=== PATIENT | female | born 1995 | race Caucasian/White ===

== ENCOUNTER 2017-02-06 22:28 | Emergency (ER) | payer OTHER ==
[~2017-02-06] VITALS: Ht 167.6 cm; Wt 88.5 kg
[2017-02-06 22:36] VITALS: TEMP 36.6; Ht 167.6 cm; Wt 88.5 kg
[2017-02-06] MEDS ORDERED: ONDANSETRON INJ 2 MG/ML 2 ML VIAL IV STA (22:55)
[2017-02-06] MEDS ORDERED: GI COCKTAIL PO ONE (23:00)
[2017-02-06] MEDS ORDERED: ALUMINUM/MAGNESIUM SUSP 30 ML UDC ONE (23:20)
[2017-02-06] MEDS ORDERED: LIDOCAINE HCL 2% VISC SOLN 20 ML UDC ONE (23:20)
[2017-02-06 23:34] LABS: URINE APPEARANCE CLEAR (CLEAR); URINE BILIRUBIN NEG (NEG); URINE COLOR YELLOW; URINE EPITHELIAL CELL AUTO >30 /lpf (0-5); URINE NITRITE NEG (NEG); UROBILINOGEN NEG (NEG); ZZUR CULT IF INDIC CLEAN CATCH YES
[2017-02-06 23:37] LABS: MANUAL MICROSCOPIC REQUIRED? NO; REVIEW REQ? NO
[2017-02-07 00:13] LABS: BASO % 0.1 %; BASO ABS # 0.01 K/uL (0-0.2); COMPLETE YES; EOS % 1.8 %; HEMATOCRIT 32.3 % (37-47); IG% 0.2 %; LYMPH % 26.2 %; LYMPH ABS # 2.39 K/uL (1.2-3.4); MEAN CELL VOLUME 76.2 fL (80-100); MEAN CORPUSCULAR HGB CONC 32.8 g/dl (32-36); MEAN PLATELET VOLUME 9.9 fL (7.4-10.4); MONO % 4.7 %; PLATELET COUNT 188 K/uL (130-400); RED BLOOD COUNT 4.24 M/uL (4.2-5.4); WHITE BLOOD COUNT 9.13 K/uL (4.8-10.8)
[2017-02-07 00:32] LABS: BUN/CREATININE RATIO 18.8 (10-20); CALCIUM 9.2 mg/dl (8.5-10.1); CREATININE 0.68 mg/dl (0.60-1.20); POTASSIUM 3.8 mmol/L (3.5-5.1)
[2017-02-07 00:35] LABS: ALB/GLOB RATIO 0.9 (0.9-2)
[2017-02-07] MEDS ORDERED: ONDANSETRON HOME PACK 4MG OD TAB PO ONE (01:15)
[2017-02-07 01:25] VITALS: BP 106/58; PULSE 70; O2SAT 98
--- NOTE | 2017-02-07 06:09 | EMERGENCY ROOM VISIT NOTE ---
History First contact with patient: 22:48 Chief Complaint: ABDOMINAL PAIN Stated Complaint: CHEST PAIN Nursing Triage Summary: Pt states upper abd pain started 1 hour ago after she ate, denies N/V, skin w/d/i, states they think she is prgnant, period was a month and a half ago. History of Present Illness The patient is a 21 year old female who presents to the Emergency Room with complaints of upper abdominal pain that began about one hour ago. The patient is nauseated and did have an episode of emesis. The patient is accompanied by her who assists in the history as the patient speaks limited Spanish. The patient is okay with him translating. The patient considers herself usually healthy. She evidently had similar symptoms when she was with her first child. She has not had a menstrual period in 6 weeks. The patient does not have fever, chills, chest pain, shortness of breath, or lower abdominal pain. No vaginal drainage, discharge, or bleeding. No difficulty using the bathroom. Review of Systems More than 10 systems were reviewed and otherwise negative with the exception of history of present illness. Past Medical/Surgical History No chronic medical disease Social History Smoking Status: Never Smoker Housing Status: lives with family Current/Historical Medications No Active Prescriptions or Reported Meds Physical Exam Vital Signs Date Time Temp Pulse Resp B/P (MAP) Pulse Ox O2 Delivery O2 Flow Rate FiO2 02/07/17 01:25 70 18 106/58 98 02/06/17 22:36 36.6 20 130/83 78 Room Air Physical Exam VITALS: Vitals are noted on the nurse's note and reviewed by myself. Vital signs stable. GENERAL: Well-developed, well-nourished, female, who is in no acute distress and resting comfortably. Patient is cooperative with the examination. HEART: Regular rate and rhythm without murmurs gallops or rubs. LUNGS: Clear to auscultation bilaterally without wheezes, rales or rhonchi. No retractions or accessory muscle use. ABDOMEN: Positive normal bowel sounds x 4. Soft, nontender, without masses or organomegaly. No guarding or rebound tenderness. MUSCULOSKELETAL: No muscle atrophy, erythema, or edema noted. Full range of motion without joint tenderness in all extremities. Medical Decision & Procedures Laboratory Results 02/07/17 00:03 Red Blood Count 4.24, Mean Corpuscular Volume 76.2, Mean Corpuscular Hemoglobin 25.0, Mean Corpuscular Hemoglobin Concent 32.8, Mean Platelet Volume 9.9, Neutrophils (%) (Auto) 67.0, Lymphocytes (%) (Auto) 26.2, Monocytes (%) (Auto) 4.7, Eosinophils (%) (Auto) 1.8, Basophils (%) (Auto) 0.1, Neutrophils # (Auto) 6.12, Lymphocytes # (Auto) 2.39, Monocytes # (Auto) 0.43, Eosinophils # (Auto) 0.16, Basophils # (Auto) 0.01 02/07/17 00:03 Test 02/06/17 23:15 02/07/17 00:03 Urine Color YELLOW Urine Appearance CLEAR (CLEAR) Urine pH 7.0 (4.5-7.5) Urine Specific [place] 1.020 (1.000-1.030) Urine Protein NEG (NEG) Urine Glucose (UA) NEG (NEG) Urine Ketones NEG (NEG) Urine Occult Blood NEG (NEG) Urine Nitrite NEG (NEG) Urine Bilirubin NEG (NEG) Urine Urobilinogen NEG (NEG) Urine Leukocyte Esterase MODERATE (NEG) Urine WBC (Auto) 10-30 /hpf (0-5) Urine RBC (Auto) 0-4 /hpf (0-4) Urine Hyaline Casts (Auto) 1-5 /lpf (0-5) Urine Epithelial Cells (Auto) >30 /lpf (0-5) Urine Bacteria (Auto) 1+ (NEG) Urine Test NEG (NEG) White Blood Count 9.13 K/uL (4.8-10.8) Red Blood Count 4.24 M/uL (4.2-5.4) Hemoglobin 10.6 g/dL (12.0-16.0) Hematocrit 32.3 % (37-47) Mean Corpuscular Volume 76.2 fL (80-100) Mean Corpuscular Hemoglobin 25.0 pg (25-34) Mean Corpuscular Hemoglobin Concent 32.8 g/dl (32-36) Platelet Count 188 K/uL (130-400) Mean Platelet Volume 9.9 fL (7.4-10.4) Neutrophils (%) (Auto) 67.0 % Lymphocytes (%) (Auto) 26.2 % Monocytes (%) (Auto) 4.7 % Eosinophils (%) (Auto) 1.8 % Basophils (%) (Auto) 0.1 % Neutrophils # (Auto) 6.12 K/uL (1.4-6.5) Lymphocytes # (Auto) 2.39 K/uL (1.2-3.4) Monocytes # (Auto) 0.43 K/uL (0.11-0.59) Eosinophils # (Auto) 0.16 K/uL (0-0.5) Basophils # (Auto) 0.01 K/uL (0-0.2) RDW Standard Deviation 40.4 fL (36.4-46.3) RDW Coefficient of Variation 14.5 % (11.5-14.5) Immature Granulocyte % (Auto) 0.2 % Immature Granulocyte # (Auto) 0.02 K/uL (0.00-0.02) Anion Gap 8.0 mmol/L (3-11) Est Creatinine Clear Calc Drug Dose 147.8 ml/min Estimated GFR () 145.9 Estimated GFR (Non- 125.9 BUN/Creatinine Ratio 18.8 (10-20) Calcium Level 9.2 mg/dl (8.5-10.1) Total Bilirubin 0.3 mg/dl (0.2-1) Aspartate Amino Transf (AST/SGOT) 13 U/L (15-37) Alanine Aminotransferase (ALT/SGPT) 17 U/L (12-78) Alkaline Phosphatase 136 U/L (45-117) Total Protein 7.6 gm/dl (6.4-8.2) Albumin 3.6 gm/dl (3.4-5.0) Globulin 4.0 gm/dl (2.5-4.0) Albumin/Globulin Ratio 0.9 (0.9-2) Lipase 114 U/L (73-393) Medications Administered Medications (Trade) Dose Ordered Sig/Nat Route Start Time Stop Time Status Last Admin Dose Admin Ondansetron HCl (Zofran Inj) 4 mg NOW STAT IV 02/06/17 22:55 02/06/17 22:57 DC 02/06/17 23:32 4 MG Lidocaine HCl (Viscous Lidocaine 2% Soln) 20 ml STK-MED ONCE .ROUTE 02/06/17 23:20 02/06/17 23:21 DC 02/06/17 23:32 20 ML Al Hydroxide/Mg Hydroxide (Maalox Susp) 30 ml STK-MED ONCE .ROUTE 02/06/17 23:20 02/06/17 23:21 DC 02/06/17 23:32 30 ML ED Course Physical exam and history were performed. Nursing notes, EMR, and Medication List were personally reviewed. Patient appears to have epigastric abdominal discomfort with an episode of vomiting over the past hour. On examination the patient does not appear toxic. Her physical exam is not consistent with an acute surgical abdomen. The patient is concerned for , and urine was performed and was negative. IV access was established and labs were obtained. The patient was medicated as above. The patient's blood work is as above and was reviewed. She does not have a significantly elevated white blood cell count, gross anemia, bandemia, or significant Imbalance. Transaminases are nondiagnostic. Urine is without obvious infection. X-ray did not show free air or other significant findings. Overall the patient continued to remain in stable condition. Repeat abdominal exam did not reveal any worsening of her symptoms. I do suspect her symptoms may be a viral or foodborne etiology. She will be treated as below and given instructions to follow with her PCP. She was otherwise invited back to ER with any new, worsening, or concerning symptoms. The chart was completed utilizing Art Qualified Speech Voice Recognition Software. Grammatical errors, random word insertions, pronoun errors, and incomplete sentences are an occasional consequence of this system due to software limitations, ambient noise, and hardware issues. Any formal questions or concerns about the content, text, or information contained within the body of this dictation should be directly addressed to the provider for clarification. . Medical Decision Differential diagnosis: Etiologies such as gastroenteritis, food borne illness, infections, appendicitis , diverticulitis, inflammatory bowel disease, obstruction, GI bleed, biliary pathology, as well as others were entertained. Impression Primary Impression: Epigastric abdominal pain Additional Impression: Nausea and vomiting Departure Information Dispostion Home / Self-Care Condition GOOD Prescriptions No Active Prescriptions or Reported Meds Forms HOME CARE DOCUMENTATION FORM, School Instructions, Additional Instructions: Patient seen and evaluated today in the emergency department for medica care. Return to class on 02/09/2017. Please excuse. IMPORTANT VISIT INFORMATION Patient Instructions My [facility] Additional Instructions You were seen and evaluated today on an emergency basis only. This is not a substitute for, or an effort to provide, complete comprehensive medical care. It is not possible to recognize and treat all injuries or illnesses in a single emergency department visit. For this reason it is recommended that you followup with [facility] or your primary care physician with any ongoing or persistent symptoms. Zofran 1 tablet every 6 hrs as needed for nausea. You are welcome to return to the emergency department anytime with new, worsening, or concerning symptoms. School Instructions Additional School Instructions: Patient seen and evaluated today in the emergency department for medical care. Return to class on 02/09/2017. Please excuse. Problem Qualifiers
--- NOTE | 2017-02-07 07:38 | DIAGNOSTIC IMAGING REPORT ---
CHEST AND ABDOMEN 2 VIEWS HISTORY: Epigastric abd pain. Make sure preg neg before xrays COMPARISON: None. FINDINGS: The lungs are clear. The cardiomediastinal silhouette is within normal limits. There is no pneumoperitoneum or pneumatosis. The bowel gas pattern is unremarkable. No evidence for bowel obstruction. No pathologic calcifications. IMPRESSION: No acute cardiopulmonary process. No evidence for bowel obstruction. Electronically signed by: Socrates Humphrey M.D. 02/07/2017 7:36 AM Dictated Date/Time: 02/07/2017 7:35 AM
== END 2017-02-07 01:20 | disposition home or self-care (01) ==
LOC: C.EDB 22:30 → C.EDC 02-07 01:20
DX: R10.13 Epigastric pain (principal); R11.2 Nausea with vomiting, unspecified

== ENCOUNTER → 2017-04-20 | Outpatient (CLI) | payer OTHER | END | disposition home or self-care (01) | LOC: C.PAPS 11:50 | PROVIDERS: ATTEND Physician Assistant | DX: Z12.4 Encounter for screening for malignant neoplasm of cervix (principal) ==

== ENCOUNTER → 2017-04-20 | Outpatient (CLI) | payer OTHER | END | disposition home or self-care (01) | LOC: C.LABSPEC 11:21 | PROVIDERS: ATTEND Physician Assistant | DX: N89.8 Other specified noninflammatory disorders of vagina (principal) ==

== ENCOUNTER 2018-09-06 07:06 | Inpatient (IN) ==
--- OUTSIDE RECORDS SUMMARY | 2018-09-06 07:09 | External Medical Summary | Continuity of Care Document ---
:1995 Author Name Kirk Mims, Provider Address Unavailable Unavailable , Care Team Providers Name Role Phone Unavailable Unavailable Unavailable XIOMARA MENON Unavailable Unavailable Unavailable Unavailable Unavailable Problems Vaginal discharge (623.5) (N89.8) Infertility counseling (V26.49) (Z31.69) Dysmenorrhea (625.3) (N94.6) Constipation, chronic (564.00) (K59.09) Allergies and Adverse Reactions No Known Drug Allergies (Allergy) Medications Care Felicita EASTMAN Refills: 0 Procedures History of hand surgery Status: Complete d Immunizations Immunizations not documented Social History - Smoking Status Never smoker Never smoker Plan of Treatment Planned Observations Planned Goals not documented Results No Known Results Results not documented Encounters Appointment; Guera Augustine PA-C 27-Jul-2017 15:20 Encounter Diagnosis: Problem not documented Appointment; [facility] HU1, Ultrasound 04-Jun-2017 14:30 Encounter Diagnosis: Problem not documented Appointment; Lexie Pederson PA-C 11-May-2017 11:40 Encounter Diagnosis: Problem not documented Appointment; [facility], Ultrasound 11-May-2017 11:00 Encounter Diagnosis: Problem not documented Appointment; Lexie Pederson PA-C 20-Apr-2017 9:00 Encounter Diagnosis: Problem not documented
[2018-09-06] MEDS ORDERED: OXYTOCIN 30 UNITS/500 ML BAG IV PRN ×3 (08:30→20:30)
--- NOTE | 2018-09-06 08:36 | Obstetrical Progress Note ---
Date of Service September 06, 2018 Subjective Admit Note 23 F P1001 at 39.4 weeks admitted for induction of labor. Cervix 2/50/- 3/vertex/posterior/soft/intact. GBS is negative. EFW is 8 lbs. Will start induction with Oxytocin. Anticipate vaginal delivery. Results & Data Vital Signs (Past 12 Hours) Vital Signs Temp Pulse Resp BP 09/06/18 07:38 87 116/65 09/06/18 07:25 37.0 C 16
[2018-09-06 08:56] LABS: Hematocrit (blood only) 33.2 % (37-47); Hemoglobin 11.4 g/dL (12.0-16.0); Mean Corpuscular Volume 82.4 fL (80-100); Platelet Count 151 K/uL (130-400); RDW Standard Deviation 44.5 fL (36.4-46.3); Red Blood Count 4.03 M/uL (4.2-5.4); White Blood Count 8.26 K/uL (4.8-10.8)
[2018-09-06 09:07] LABS: Mean Corpuscular Hgb Conc 34.3 g/dL (32-36)
[2018-09-06] MEDS: LACTATED RINGER'S 1,000 ML IV PRN ×3 (09:43→20:02)
--- NOTE | 2018-09-06 13:14 | Obstetrical Progress Note ---
Date of Service September 06, 2018 Physical Exam Genitourinary: OB Exam Abdomen: + vertex Manual OB Exam: + cervical dilation 2 cm and 3 cm, + cervical effacement 50% and + station high OB Exam Monitor Tracing: + external FHT monitor used, + external uterine monitor used and + category I AROM clear fluid Results & Data Vital Signs (Past 12 Hours) Vital Signs Temp Pulse Resp BP 09/06/18 12:48 79 118/64 09/06/18 11:51 68 18 119/66 09/06/18 11:00 36.9 C 76 18 117/69 09/06/18 09:49 81 122/66 09/06/18 09:48 18 09/06/18 07:38 87 116/65 09/06/18 07:25 37.0 C 16
[2018-09-06] MEDS ORDERED: BUPIVACAINE 0.25% 30 ML VIAL ONE (14:54)
[2018-09-06] MEDS ORDERED: fentaNYL citrate 100 MCG/2 ML VIAL ONE (14:54)
[2018-09-06] MEDS ORDERED: ePHEDrine sulfate 50 MG/ML AMP ONE (14:54)
[2018-09-06] MEDS ORDERED: fentaNYL 2MCG/ML ROPIV 1.25MG/ML 100 ML BAG EPI ONE (14:55)
[2018-09-06] MEDS ORDERED: ONDANSETRON INJ 2 MG/ML 2 ML VIAL IV PRN (15:06)
[2018-09-06] MEDS ORDERED: DiphenhydrAMINE HCL 50 MG/ML VIAL IV PRN (15:06)
[2018-09-06] MEDS ORDERED: NALOXONE HCL 1 MG in SODIUM CHLORIDE 0.9% 1000ML 1,000 ML IV PRN (15:06)
[2018-09-06] MEDS ORDERED: fentaNYL 2MCG/ML ROPIV 1.25MG/ML 100 ML BAG EPI PRN (15:06)
[2018-09-06] MEDS ORDERED: ePHEDrine sulfate 50 MG/ML AMP IV PRN (15:06)
[2018-09-06] MEDS ORDERED: NALBUPHINE HCL INJ 10 MG/ML AMP IV PRN (15:06)
[2018-09-06] MEDS ORDERED: NALOXONE HCL 0.4 MG/1 ML VIAL/CARP IV PRN (15:06)
--- NOTE | 2018-09-06 15:10 | Anesthesiology Consultation ---
Date of Service September 06, 2018 Assessment & Plan Chart Review Chart Review: Patient NOT seen in Pre Admission Testing and Acceptable Risk for Labor Epidural Consults Requested none ASA ASA2 Proposed Anesthesia Anesthesia Type: Labor Epidural and CSE Risk / Benefits Reviewed With: PT / POA / Parent / Guardian, Accepts Plan and Informed Consent Obtained History Height/Weight Height: 5 ft 6 in Weight: 105.687 kg Allergies Allergy/AdvReac Type Severity Reaction Status Date / Time No Known Allergies Allergy Unverified 12/24/17 08:35 Medications Home Medications Medication Instructions Recorded Confirmed Last Taken ferrous sulfate [iron] 325 mg PO DAILY 09/06/18 09/06/18 09/05/18 vit-iron fum-folic ac 1 tab PO DAILY 09/06/18 09/06/18 09/05/18 [ Vitamin] Active Medications Generic Name Dose Route Start Last Admin Trade Name Freq PRN Reason Stop Dose Admin Lactated Ringer's 1,000 mls @ 125 mls/hr 09/06/18 08:30 09/06/18 15:01 Lr IV 09/08/18 08:29 999 mls/hr .Q8H PRN Infusion L&D Protocol Protocol Oxytocin 30 units in 500 mls @ 5 mls/hr 09/06/18 08:34 09/06/18 15:01 Pitocin IV 09/08/18 08:33 0.3 units/hr .Q24H PRN 5 mls/hr Labor Induction/Augmentation Titration Protocol 0.3 UNITS/HR NPO Date Last Intake of Fluids: 09/06/18 Time Last Intake of Fluids: 14:50 Date Last Intake of Solids: 09/06/18 Time Last Intake of Solids: 06:00 Past Medical History Medical History Anemia Daily Iron Supplement hemorrhage Patient received a blood transfusion with last delivery. Vitamin D deficiency No pertinent past medical history Exercise / Class Metabolic Activity II 4-5 Yardwork/Stairs/Walk up hill Past Family History Family History Other No known health problems Past Surgical History Surgical History No history of previous surgery Past Anesthesia History No Hx of Anesthesia Complications and No Family Hx of Anesthesia Complications History of PONV No Hx of PONV Social History Smoking Status: Never smoker Hx Alcohol Use: No Hx Substance Use: No Review of Systems no chest pain or sob Physical Exam Vital Signs Last Vital Signs Temp 36.7 C 09/06/18 14:58 Pulse 72 09/06/18 14:58 Resp 18 09/06/18 14:58 BP 142/69 H 09/06/18 14:58 ENMT Mouth: no TMJ abnormality Thyromental Distance: > or= 3.5 Finger Breadths Mallampati Class: II Neck normal visual inspection Respiratory normal respiratory effort Auscultation: lungs clear to auscultation bilaterally Cardiovascular Rate/Rhythm: regular rate and regular rhythm Musculoskeletal Spine: normal cervical ROM Neurologic moves all extremities Psychiatric Orientation: alert and oriented x 3
--- NOTE | 2018-09-06 15:56 | Obstetrical Progress Note ---
Date of Service September 06, 2018 Physical Exam Genitourinary: Manual OB Exam: + cervical dilation 5 cm, + cervical effacement 80%, + station -2 and + amniotic fluid clear OB Exam Monitor Tracing: + external FHT monitor used, + external uterine monitor used and + category I Results & Data Vital Signs (Past 12 Hours) Vital Signs Temp Pulse Resp BP Pulse Ox 09/06/18 15:54 76 114/63 09/06/18 15:51 80 100 09/06/18 15:46 76 99 09/06/18 15:41 75 100 09/06/18 15:38 74 110/53 L 09/06/18 15:36 76 99 09/06/18 15:33 71 110/57 L 09/06/18 15:31 73 111/56 L 99 09/06/18 15:29 65 106/59 L 09/06/18 15:27 66 108/56 L 09/06/18 15:26 72 98 09/06/18 15:21 69 100 09/06/18 15:20 91 H 91 09/06/18 15:16 82 100 09/06/18 15:11 77 100 09/06/18 14:58 36.7 C 72 18 142/69 H 09/06/18 14:03 75 18 120/68 09/06/18 12:48 36.6 C 79 18 118/64 09/06/18 11:51 68 18 119/66 09/06/18 11:00 36.9 C 76 18 117/69 09/06/18 09:49 81 122/66 09/06/18 09:48 18 09/06/18 07:38 87 116/65 09/06/18 07:25 37.0 C 16
--- NOTE | 2018-09-06 18:35 | Obstetrical Progress Note ---
Date of Service September 06, 2018 Physical Exam Genitourinary: Manual OB Exam: + cervical dilation 5 cm, + cervical effacement 90% and + amniotic fluid clear OB Exam Monitor Tracing: + external FHT monitor used, + external uterine monitor used and + category I Will continue to increase Oxytocin Results & Data Vital Signs (Past 12 Hours) Vital Signs Temp Pulse Resp BP Pulse Ox 09/06/18 18:31 101 H 100 09/06/18 18:26 72 100 09/06/18 18:25 71 111/58 L 09/06/18 18:21 70 100 09/06/18 18:16 73 99 09/06/18 18:11 72 113/55 L 100 09/06/18 18:06 70 99 09/06/18 18:01 70 100 09/06/18 17:56 72 105/56 L 100 09/06/18 17:51 70 98 09/06/18 17:46 67 100 09/06/18 17:41 69 100 09/06/18 17:40 70 113/59 L 09/06/18 17:36 70 100 09/06/18 17:31 68 100 09/06/18 17:26 70 100 09/06/18 17:24 72 113/57 L 09/06/18 17:21 74 100 09/06/18 17:16 72 99 09/06/18 17:11 77 99 09/06/18 17:10 74 111/57 L 09/06/18 17:06 71 100 09/06/18 17:01 76 99 09/06/18 16:56 69 100 09/06/18 16:55 36.9 C 72 18 111/58 L 09/06/18 16:51 74 99 09/06/18 16:46 74 99 09/06/18 16:41 72 100 09/06/18 16:39 70 109/62 09/06/18 16:36 71 100 09/06/18 16:31 77 100 09/06/18 16:26 75 100 09/06/18 16:25 70 112/58 L 09/06/18 16:21 71 100 09/06/18 16:16 77 100 09/06/18 16:11 71 100 09/06/18 16:09 75 114/59 L 09/06/18 16:06 73 100 09/06/18 16:01 79 100 09/06/18 15:56 73 100 09/06/18 15:54 76 114/63 09/06/18 15:51 80 100 09/06/18 15:46 76 99 09/06/18 15:41 75 100 09/06/18 15:38 74 110/53 L 09/06/18 15:36 76 99 09/06/18 15:33 71 110/57 L 09/06/18 15:31 73 111/56 L 99 09/06/18 15:29 65 106/59 L 09/06/18 15:27 66 108/56 L 09/06/18 15:26 72 98 09/06/18 15:21 69 100 09/06/18 15:20 91 H 91 09/06/18 15:16 82 100 09/06/18 15:11 77 100 09/06/18 14:58 36.7 C 72 18 142/69 H 09/06/18 14:03 75 18 120/68 09/06/18 12:48 36.6 C 79 18 118/64 09/06/18 11:51 68 18 119/66 09/06/18 11:00 36.9 C 76 18 117/69 09/06/18 09:49 81 122/66 09/06/18 09:48 18 09/06/18 07:38 87 116/65 09/06/18 07:25 37.0 C 16
--- NOTE | 2018-09-06 20:04 | Obstetrical Progress Note ---
Date of Service September 06, 2018 Physical Exam Genitourinary: Manual OB Exam: + cervical dilation 9 cm, + cervical effacement 100% and + station -1 OB Exam Monitor Tracing: + external FHT monitor used, + external uterine monitor used, + category I and + normal FHT variability feeling more pressure Results & Data Vital Signs (Past 12 Hours) Vital Signs Temp Pulse Resp BP Pulse Ox 09/06/18 20:01 85 100 09/06/18 19:56 79 99 09/06/18 19:54 80 124/68 09/06/18 19:51 76 100 09/06/18 19:46 82 100 09/06/18 19:41 80 100 09/06/18 19:40 78 120/56 L 09/06/18 19:36 73 100 09/06/18 19:31 83 18 100 09/06/18 19:26 78 100 09/06/18 19:25 73 114/62 09/06/18 19:21 76 100 09/06/18 19:16 71 100 09/06/18 19:11 84 100 09/06/18 19:09 73 116/64 09/06/18 19:06 72 100 09/06/18 19:03 37.1 C 18 09/06/18 19:01 74 100 09/06/18 18:56 77 100 09/06/18 18:55 74 116/67 09/06/18 18:51 75 100 09/06/18 18:46 81 100 09/06/18 18:41 68 100 09/06/18 18:40 67 117/64 09/06/18 18:36 78 100 09/06/18 18:31 101 H 100 09/06/18 18:26 72 100 09/06/18 18:25 71 111/58 L 09/06/18 18:21 70 100 09/06/18 18:16 73 99 09/06/18 18:11 72 113/55 L 100 09/06/18 18:06 70 99 09/06/18 18:01 70 100 09/06/18 17:56 72 105/56 L 100 09/06/18 17:51 70 98 09/06/18 17:46 67 100 09/06/18 17:41 69 100 09/06/18 17:40 70 113/59 L 09/06/18 17:36 70 100 09/06/18 17:31 68 100 09/06/18 17:26 70 100 09/06/18 17:24 72 113/57 L 09/06/18 17:21 74 100 09/06/18 17:16 72 99 09/06/18 17:11 77 99 09/06/18 17:10 74 111/57 L 09/06/18 17:06 71 100 09/06/18 17:01 76 99 09/06/18 16:56 69 100 09/06/18 16:55 36.9 C 72 18 111/58 L 09/06/18 16:51 74 99 09/06/18 16:46 74 99 09/06/18 16:41 72 100 09/06/18 16:39 70 109/62 09/06/18 16:36 71 100 09/06/18 16:31 77 100 09/06/18 16:26 75 100 09/06/18 16:25 70 112/58 L 09/06/18 16:21 71 100 09/06/18 16:16 77 100 09/06/18 16:11 71 100 09/06/18 16:09 75 114/59 L 09/06/18 16:06 73 100 09/06/18 16:01 79 100 09/06/18 15:56 73 100 09/06/18 15:54 76 114/63 09/06/18 15:51 80 100 09/06/18 15:46 76 99 09/06/18 15:41 75 100 09/06/18 15:38 74 110/53 L 09/06/18 15:36 76 99 09/06/18 15:33 71 110/57 L 09/06/18 15:31 73 111/56 L 99 09/06/18 15:29 65 106/59 L 09/06/18 15:27 66 108/56 L 09/06/18 15:26 72 98 09/06/18 15:21 69 100 09/06/18 15:20 91 H 91 09/06/18 15:16 82 100 09/06/18 15:11 77 100 09/06/18 14:58 36.7 C 72 18 142/69 H 09/06/18 14:03 75 18 120/68 09/06/18 12:48 36.6 C 79 18 118/64 09/06/18 11:51 68 18 119/66 09/06/18 11:00 36.9 C 76 18 117/69 09/06/18 09:49 81 122/66 09/06/18 09:48 18
[2018-09-06] MEDS ORDERED: DIPHTHERIA/TETANUS/PERTUSSIS 0.5 ML SYR/VIAL IM ONE (20:30)
[2018-09-06] MEDS ORDERED: HYDROCORTISONE ACETATE 25 MG SUPP PR PRN (20:30)
[2018-09-06] MEDS ORDERED: SUPERCREAM 0.870% 15 GM JAR EXT PRN (20:30)
[2018-09-06] MEDS ORDERED: BISACODYL 10 MG SUPP PR PRN (20:30)
[2018-09-06] MEDS ORDERED: BENZOCAINE 20% AER SPR 82.5 GM CAN EXT PRN (20:30)
[2018-09-06] MEDS ORDERED: MEASLES, MUMPS & RUBELLA VIRUS VIAL SQ ONE (20:30)
--- NOTE | 2018-09-06 20:34 | Procedure Note ---
Vaginal Delivery Summary Date of Service September 06, 2018 Vaginal Delivery Summary Delivery Note live male over intact perineum YASMANI with nuchal cord x1 reduced at delivery. Delayed cord clamping followed by cord blood and spontaneous delivery of intact placenta. No tears. EBL 200 ml. Final sponge and instrument count are correct. Mom and baby stable.
--- NOTE | 2018-09-06 21:49 | Anesthesia Procedure Note ---
Date of Service September 06, 2018 Anesthesia Post Epidural Note Vital Signs Vital Signs: Temp Pulse Resp BP Pulse Ox 36.8 C 94 H 18 132/61 92 09/06/18 20:30 09/06/18 21:24 09/06/18 21:30 09/06/18 21:24 09/06/18 20:19 Pain Intensity Bilateral Abdomen: Pain Intensity: 1 Notes Mental Status: alert / awake / arousable and participated in evaluation Nausea / Vomiting: adequately controlled Pain: adequately controlled Airway Patency, RR, SpO2: stable & adequate BP & HR: stable & adequate Hydration State: stable & adequate Neuraxial Anesthesia: was administered and sensory block is resolving Anesthetic Complications: no major complications apparent and Pt Satisfied with anesthetic care Epidural: Removed without complications and With tip intact
[2018-09-06] MEDS: IBUPROFEN 600 MG TAB PO PRN (22:13)
[2018-09-07] MEDS: IBUPROFEN 600 MG TAB PO PRN ×3 (06:00→20:59)
[2018-09-07 06:57] LABS: Hematocrit (blood only) 30.7 % (37-47); Hemoglobin 10.5 g/dL (12.0-16.0); Mean Corpuscular Hgb Conc 34.2 g/dL (32-36); Mean Corpuscular Volume 83.7 fL (80-100); Mean Platelet Volume 10.9 fL (7.4-10.4); Platelet Count 137 K/uL (130-400); RDW Coefficient of Variation 15.2 % (11.5-14.5); RDW Standard Deviation 46.2 fL (36.4-46.3); Red Blood Count 3.67 M/uL (4.2-5.4); White Blood Count 10.24 K/uL (4.8-10.8)
[2018-09-07] MEDS ORDERED: PRENATAL VITAMIN 1 TAB ONE (07:47)
[2018-09-07] MEDS ORDERED: FERROUS SULFATE 325 MG TAB PO ONE (07:47)
[2018-09-07] MEDS: PRENATAL VITAMIN 1 TAB PO SCH (07:58)
[2018-09-07] MEDS: DOCUSATE SODIUM 100 MG CAP PO SCH ×2 (07:59→20:59)
[2018-09-07] MEDS: FERROUS SULFATE 325 MG TAB PO SCH (08:06)
[2018-09-07] MEDS ORDERED: NON-FORMULARY MEDICATION (Ferrous Sulfate [Iron] 325 MG) PO SCH (09:00)
[2018-09-07] MEDS ORDERED: NON-FORMULARY MEDICATION (Prenatal Vit-Iron Fum-Folic Ac [Prenatal Vitamin] 1 TAB) PO SCH (09:00)
--- NOTE | 2018-09-07 12:35 | Obstetrical Progress Note ---
Date of Service September 07, 2018 Assessment & Plan (1) Post depression: PPD #1 pt doing well wishes to be disch home Subjective Ambulation: ambulating normally Voiding: no voiding problems Passing Gas:: Yes Diet Tolerance:: regular diet Lochia:: Small Feeding Type:: breast feeding Review of Systems All systems reviewed & are unremarkable except as noted in HPI & below Physical Exam Constitutional WD/WN, vitals as above well developed and well nourished Eyes PERRL, conjunctivae normal, anicteric sclerae Neck trachea midline, no thyromegaly Respiratory normal respiratory effort, lungs clear to auscultation Auscultation: no crackles, no rales and no wheezes Cardiovascular RRR, no murmur, no edema Gastrointestinal (Abdomen) normal bowel sounds, soft, nontender, no hepatosplenomegaly Uterus is below umbilicus Musculoskeletal no cyanosis or clubbing, extremities motor strength 5/5 Skin no rashes, warm and dry Neurologic patellar DTR's 2+ bilat, sensation intact Psychiatric A+Ox3, euthymic affect Genitourinary normal external appearance Results & Data Vital Signs (Past 12 Hours) Vital Signs Temp Pulse Resp BP Pulse Ox 09/07/18 07:37 36.8 C 78 20 126/75 09/07/18 04:40 36.7 C 77 16 121/73 99
[2018-09-07] MEDS: ACETAMINOPHEN 325 MG TAB PO PRN (16:34)
[2018-09-07] MEDS ORDERED: BISACODYL 5 MG TABEC PO SCH (20:00)
[2018-09-08 06:33] LABS: Hemoglobin 10.5 g/dL (12.0-16.0)
[2018-09-08] MEDS: PRENATAL VITAMIN 1 TAB PO SCH (08:44)
[2018-09-08] MEDS: FERROUS SULFATE 325 MG TAB PO SCH (08:44)
[2018-09-08] MEDS: DOCUSATE SODIUM 100 MG CAP PO SCH (08:44)
[2018-09-08] MEDS: IBUPROFEN 600 MG TAB PO PRN (08:46)
[2018-09-08] MEDS: ACETAMINOPHEN 325 MG TAB PO PRN (09:29)
== END 2018-09-08 13:45 | disposition home or self-care (01) | DRG 807 ==
LOC: 4S1 07:06 → 4S2 23:00